=== PATIENT | female | born 1995 | race African-American/Black ===

== ENCOUNTER 2018-06-03 00:52 | Emergency (ER) | payer MEDICAID ==
[~2018-06-03] VITALS: Ht 162.6 cm; Wt 59.0 kg
[2018-06-03 01:29] LABS: Basophils # (auto) 0 uL; Basophils % (auto) 0.3 % (0.0-2.0); Eosinophils # (auto) 0.1 uL; Eosinophils % (auto) 2.2 % (0.0-7.0); Hematocrit 37.6 % (36.0-46.0); Hemoglobin 12.4 g/dL (12.2-16.2); Lymphocytes % (auto) 53.1 % (10.0-50.0); Mean Corpuscular Hemoglobin 27.2 pg (28.0-32.0); Mean Corpuscular Volume 82.4 fL (80.0-100.0); Monocytes # (auto) 0.7 uL; Monocytes % (auto) 11.8 % (0.0-12.0); Neutrophils # (auto) 1.8 uL; Neutrophils % (auto) 32.6 % (37.0-80.0); Nucleated Red Blood Cells % 0.1 %; Platelet Count (auto) 275 10^3/uL (140-450); Red Blood Cells 4.57 10^6/uL (4.0-5.20); Red Cell Distribution Width 13.1 % (11.8-14.3); White Blood Cell 5.6 10^3/uL (4.4-10.8)
[2018-06-03 01:47] LABS: BUN/Creatinine Ratio 11.4; Calcium 8.5 mg/dL (8.5-10.1); Potassium 3.9 mmol/L (3.5-5.1)
[2018-06-03 01:49] LABS: Bilirubin, Total 0.3 mg/dL (0.2-1.0); Total Protein 7.9 g/dL (6.4-8.2)
[2018-06-03 02:15] LABS: Urine Bacteria MOD /hpf (None Seen); Urine Blood Negative /uL (Negative); Urine Mucus FEW (None Seen); Urine Specific Gravity 1.026 (1.001-1.035); Urine WBC 5 /hpf (0 - 5)
[2018-06-03 03:19] VITALS: BP 124/69
== END 2018-06-03 03:46 | disposition left against medical advice (07) ==
LOC: EDSEX 00:52 → EDBD 00:52 → ER 00:57
DX: R56.9 Unspecified convulsions (principal); Z53.21 Procedure and treatment not carried out due to patient leaving prior to being seen by health care provider
CPT/HCPCS: 36415; 70450; 80053; 81001; 82542; 84702; 85025; 93005; 94761